=== PATIENT | female | born 1980 | race Caucasian/White ===

== ENCOUNTER 2023-05-22 21:48 | Emergency (ER) | payer OTHER, SELFPAY ==
[2023-05-22 22:01] VITALS: BP 157/94; PULSE 89; RESP 16; TEMP 36.6; O2SAT 99; BMI 19.5
--- NOTE | 2023-05-22 22:13 | PC.NURSE ---
Patient LUQ abdominal pain started this evening around 1800 after eating spaghetti. The pain does not radiate at all. Pt denies N/V/D.
--- NOTE | 2023-05-22 22:19 | CT_ITS ---
[address] [address] Patient Name: RELL SOSA MRN: [id number] date: 1980 Sex: F Assigned Patient Location: ER Current Patient Location: ER Accession/Order Number: [id number] Exam Date: 05/22/2023 22:26 Report Date: 05/22/2023 23:28 At the request of: AMBER CULVER Procedure: CT abdomen pelvis wo con EXAM: CT abdomen pelvis wo con HISTORY: left flank pain COMPARISON: CT 06/20/2020 pelvic ultrasound 07/04/2020. TECHNIQUE: CT abdomen pelvis without contrast. Individualized dose reduction views for this exam. Axial scans with reformatted coronal and sagittal images. FINDINGS: Lower Chest: Lung bases clear, no acute process. ABDOMEN: Noncontrast appearance liver, adrenal glands, spleen pancreas unremarkable. Small amount of fluid in the gallbladder probably related to recent meal postprandial state. Punctate right renal calculi as seen on prior CT without hydronephrosis or ureteral calculus. Scarring lower pole unchanged. Unremarkable left kidney. No ureteral calculus. No perirenal fluid or stranding. No ascites or free fluid. No adenopathy. Normal size aorta. No bowel distention wall thickening or edema. Normal caliber appendix right lower quadrant. High density material the colon probably ingested material. Pelvis: Uterus midline. Small left ovarian cyst/follicle 1.8 cm. Possible right ovarian cyst 2.8 along the posterior right side of the uterus, difficult to separate from the uterus on this noncontrast study. No adenopathy or free fluid.. Moderate stool in the rectum. Small amount of fluid in the bladder. MUSCULOSKELETAL: No bony abnormality. Soft tissues unremarkable. No hernia CT/CT abdomen pelvis wo con IMPRESSION: 1. Abdomen CT unremarkable without acute abnormality. 2. Small left ovarian cyst/follicle possible right ovarian cyst 2.7 cm. Difficult to separate from uterus on this noncontrast study. Could be evaluated with pelvic ultrasound. 3. Punctate nonobstructing right renal calculi. No ureteral calculus Electronically authenticated by: ADEOLA ALVAREZ Date: 05/22/2023 23:28
--- NOTE | 2023-05-22 22:21 | ED_ITS ---
HPI - Abdominal Pain General Chief Complaint: Abdominal Pain Stated Complaint: Left Flank Pain Time Seen by Provider: 05/22/23 21:53 Source: patient Mode of arrival: walk-in Limitations: no limitations History of Present Illness HPI narrative: Patient suddenly developed burning to the left flank and left lower abdomen today. She has previously experienced dull, achy pain in this region but never sharp pain. She admitted to having bowel problems with recurrent pain. She said that she strained a bit yesterday to pass stool. No blood in urine or stool. No urinary complaints. No prior history ofUC, Crohn's, diverticulitis or kidney stones. She denies any chance of Related Data Previous Rx's Medication Instructions Recorded hyoscyamine sulfate 0.125 mg 0.125 mg PO Q6H PRN abdominal pain 05/22/23 sublingual tablet (Levsin/SL) #20 tabs Allergies Allergy/AdvReac Type Severity Reaction Status Date / Time No Known Drug Allergies Allergy Verified 05/22/23 22:04 PFSH PFSH Social History Smoking status: Never smoker Exam Narrative Exam Narrative: Nurses notes and vital signs reviewed and patient is not hypoxic. Afebrile General: Well-appearing and in no apparent distress. Skin: Warm, dry, no pallor noted. No rash. Eye: Pupils are equal, round and EOMI. No scleral icterus. Cardiovascular: Regular Rate and Rhythm without murmur, gallop or rub. Respiratory: No accessory muscle use or respiratory distress. Lungs are clear to auscultation, no wheezing, rales or rhonchi Back: No midline thoracic or lumbar vertebral tenderness. No CVA tenderness. Tenderness to the lateral left lower back/flank. Musculoskeletal: normal ROM GI: Abdomen is soft, non-distended. Normal bowel sounds. No masses appreciated. Left lower quadrant tenderness to palpation. No rebound, guarding, or rigidity noted. Neurological: A&O x4. No cranial nerve dysfunction observed. No truncal a taxia. Moves all extremities. Sensation intact. Psychiatric: Cooperative and interactive. Normal mood and affect. Constitutional Vital Signs, click to edit/add: Last Vital Signs Temp 97.9 F 05/22/23 22:01 Pulse 89 05/22/23 22:01 Resp 16 05/22/23 22:01 BP 157/94 H 05/22/23 22:01 Pulse Ox 99 03/13/24 22:01 O2 Del Method Room Air 05/22/23 22:01 Course Vital Signs Vital signs: Vital Signs Temperature 97.9 F 05/22/23 22:01 Pulse Rate 89 05/22/23 22:01 Respiratory Rate 16 05/22/23 22:01 Blood Pressure 157/94 H 05/22/23 22:01 Pulse Oximetry 99 05/22/23 22:01 Oxygen Delivery Method Room Air 05/22/23 22:01 Temperature 97.9 F 05/22/23 22:01 Pulse Rate 89 05/22/23 22:01 Respiratory Rate 16 05/22/23 22:01 Blood Pressure 157/94 H 05/22/23 22:01 Pulse Oximetry 99 05/22/23 22:01 Oxygen Delivery Method Room Air 05/22/23 22:01 MDM - Abdominal Pain MDM Narrative Medical decision making narrative: Urine obtained and sent for testing. Patient sent for CT scanning of the abdom en pelvis. UA negative. CT abd/pelvis = no left abdominal abnormalities to account for the patient's pain. Incidental ovarian cyst possible on opposite side of the patient's complaint. Patient informed of results, given reassurance and discharged home. Given Levsin for abdominal pain before discharge. Prescribed the same for home use. Instructed to increase water and fiber intake. Lab Data Attestation: I reviewed the patient's lab results. Labs: Lab Results 05/22/23 Range/Units 22:05 Urine Color Lt. yellow (YELLOW) Urine Clarity Clear (CLEAR) Urine pH 5.5 (5.0-9.0) Ur Specific [place] >=1.030 A (1.005-1.025) Urine Protein Negative (NEG/TRACE) mg/dL Urine Glucose (UA) Negative (NEGATIVE) mg/dL Urine Ketones Negative (NEGATIVE) mg/dL Urine Occult Blood Negative (NEGATIVE) Urine Nitrite Negative (NEGATIVE) Urine Bilirubin Negative (NEGATIVE) Urine Urobilinogen 0.2 (0.2-1.0) EU/dL Ur Leukocyte Esterase Negative (NEGATIVE) Imaging Data CT scan - abdomen: Radiologist's impression: ITS Impressions Abdomen/Pelvis CT 05/22/23 22:19 IMPRESSION: 1. Abdomen CT unremarkable without acute abnormality. 2. Small left ovarian cyst/follicle possible right ovarian cyst 2.7 cm. Difficult to separate from uterus on this noncontrast study. Could be evaluated with pelvic ultrasound. 3. Punctate nonobstructing right renal calculi. No ureteral calculus Electronically authenticated by: ADEOLA ALVAREZ Date: 05/22/2023 23:28 Discharge Plan Discharge Stand Alone Forms: Portal Instructions Chief Complaint: Abdominal Pain Clinical Impression: Abdominal pain Patient Disposition: Home, Self-Care Time of Disposition Decision: 23:47 Prescriptions / Home Meds: New hyoscyamine sulfate [Levsin/SL] 0.125 mg tablet, sublingual 0.125 mg PO Q6H PRN (Reason: abdominal pain) Qty: 20 0RF Instructions: Abdominal Pain (ED) Referrals: REJI LOPEZ [Primary Care Provider] - 1 week
[2023-05-22 22:31] LABS: Bilirubin Urine NEGATIVE (NEGATIVE); Blood Urine NEGATIVE (NEGATIVE); Clarity Urine CLEAR (CLEAR); Color Urine LT. YELLOW (YELLOW); Glucose Urine UA NEGATIVE (NEGATIVE); Ketones Urine NEGATIVE (NEGATIVE); Leukocyte Esterase Urine NEGATIVE (NEGATIVE); Nitrite Urine NEGATIVE (NEGATIVE); Protein Urine NEGATIVE (NEG/TRACE); Specific Gravity Urine >=1.030 (1.005-1.025); Urobilinogen Urine 0.2 EU/dL (0.2-1.0); pH Urine 5.5 (5.0-9.0)
[2023-05-22 22:34] LABS: Urine Microscopic Indicated NO
[2023-05-23] MEDS: HYOSCYAMINE SULFATE 0.125 MG TAB.SUBL SL
== END 2023-05-23 00:01 | disposition home or self-care (01) ==
PROVIDERS: Emergency Provider Emergency Medicine; PCP Family Medicine
DX: R10.9 Unspecified abdominal pain (principal)
CPT/HCPCS: 74176; 81003; 99284